=== PATIENT | male | born 1950 | race American Indian/Alaskan Native ===

== ENCOUNTER 2016-08-20 10:22 | Day surgery (SDC) | payer MEDICARE, MEDICAID ==
[2016-08-13 12:25] VITALS: BMI 37.0
[2016-08-20 11:00] VITALS: TEMP 97.5
[2016-08-20 11:02] LABS: HEMATOCRIT 42.2 % (42.0-52.0); MEAN CELL VOLUME 88.1 fL (80.0-105.0); MEAN CORPUSCULAR HEMOGLOBIN 30.3 pg (25.0-35.0); MEAN CORPUSCULAR HGB CONC 34.4 g/dl (31.0-37.0); MEAN PLATELET VOLUME 10.2 fl (7.0-11.0); RED CELL DISTRIBUTION WIDTH 13.3 % (11.5-14.5); WHITE BLOOD COUNT 6.4 10^3/ul (4.5-11.0)
[2016-08-20] MEDS ORDERED: Lidocaine 2% Inj (20ml) ONE (11:04)
[2016-08-20] MEDS ORDERED: Iohexol 350 MG/100 ML VIAL ONE (11:04)
[2016-08-20 11:12] LABS: BLOOD UREA NITROGEN 11 mg/dL (7-21); CALCIUM 9.1 mg/dL (8.4-10.5); CARBON DIOXIDE 23 mmol/L (21-33); CHLORIDE 105 mmol/L (98-107); CHOLESTEROL 137 mg/dL (130-200); GFR AFRICAN-AMERICAN > 60; GLUCOSE,RANDOM 282 mg/dL (70-110); POTASSIUM 4.2 mmol/L (3.6-5.0); SODIUM 139 mmol/L (132-148)
[2016-08-20 11:13] LABS: INR 0.99 (0.93-1.08); PARTIAL THROMBOPLASTIN TIME 31.8 Seconds (23.7-30.8)
[2016-08-20] MEDS ORDERED: Midazolam 2 MG/2 ML VIAL ONE (11:37)
[2016-08-20] MEDS ORDERED: Sodium Chloride 0.45% 1,000 ML IV SCH (12:00)
[2016-08-20 14:39] VITALS: BP 131/74; PULSE 73; RESP 16; O2SAT 96
--- NOTE | 2016-08-26 09:25 | CARD ---
APPROVED REPORT Procedure(s) performed: Left Heart Catheterization Complete Heart Catheterization Left Ventriculogram HISTORY 7 days), most recent EF: 60%. (EF Method: Echocardiogram), peripheral vascular disease, diabetes mellitus with oral treatment , chronic lung disease, previous diagnostic cath, tobacco history() : The patient is a former smoker , previous PCI (The PCI date was 04/04/2013), hypertension , dyslipidemia . INDICATION The indication(s) include : positive stress test, stable angina (>72 hrs to = 7 days), chest pain, dyspnea. CASE TECHNIQUE The patient was brought electively to the Cardiac Catheterization Laboratory in a fasting state and was prepped and draped in a sterile manner. The right femoral groin was infiltrated with 2% Lidocaine subcutaneous anesthesia. A 5 Fr x 11 cm Skye sheath was inserted using coronary diagnostic catheters. The left coronary system was accessed and visualized with a Diagnostic catheter. The right coronary system was accessed and visualized with a Diagnostic catheter. The left ventricle was accessed and visualized with a Diagnostic catheter. Left ventricular/Aortic Valve gradient assessed on pullback. Left ventriculogram was performed in CARRIE projection. Closure device was deployed with a 6 Fr Angio-Seal without any complications. Vessel Analysis The patient's coronary anatomy is right dominant. The left main coronary artery is a medium size vessel without stenosis. The left main bifurcates to the left anterior descending and circumflex. The left anterior descending artery is a medium size vessel . There is a 50% stenosis in the mid segment. Distally the vessel is diffusly diseased. The first diagonal branch is a medium size vessel . There is a 50% stenosis in the ostial segment. The circumflex artery is a medium size vessel . There is a 50% stenosis in the distal segment. The right coronary artery is a large size vessel . Proximal stent is patent. There is a 30% stenosis in the mid segment. The right posterolateral branch is a medium size vessel . There is a 50% stenosis in the mid segment. Conclusion patent stent in RCA. 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 Normal left ventricular function. Recommendations [facility] Medical Therapy Weight Loss Reduction ProgramMedical Therapy
== END 2016-08-20 15:40 | disposition home or self-care (01) ==
LOC: CATH 10:22
PROVIDERS: ATTEND Internal Medicine Cardiovascular Disease
DX: I25.119 Atherosclerotic heart disease of native coronary artery with unspecified angina pectoris (principal); I10 Essential (primary) hypertension; I73.9 Peripheral vascular disease, unspecified; E11.9 Type 2 diabetes mellitus without complications; J44.9 Chronic obstructive pulmonary disease, unspecified; Z87.891 Personal history of nicotine dependence; E78.5 Hyperlipidemia, unspecified; Z95.5 Presence of coronary angioplasty implant and graft
CPT/HCPCS: 36415; 80048; 80061; 85027; 85610; 85730; 86850; 86900; 93458; 99152; C1713; C1760; C1769; C1887 ×2; J1644; J2250; J3010; J7030; J7040; Q9967